=== PATIENT | female | born 1945 | race Caucasian/White ===

== ENCOUNTER 2023-03-15 14:25 | Outpatient (CLI) | payer MEDICARE ==
[~2023-03-15 14:25] MED LIST: ASPI-83 PO; FESO4TAB PO; FLEC100T2 PO; FURO-150 PO; LEVO137T24 PO; LISI20TA28 PO; MAGN400T39 PO; METO-395 PO; SIMV10TA98 PO
== END 2023-03-15 23:59 | disposition home or self-care (01) ==
LOC: CARD DIAG 14:25
PROVIDERS: ATTEND Internal Medicine Cardiovascular Disease
DX: I34.0 Nonrheumatic mitral (valve) insufficiency (principal); R06.02 Shortness of breath; I48.0 Paroxysmal atrial fibrillation
CPT/HCPCS: 93306

== ENCOUNTER → 2024-06-20 | Day surgery (SDC) | payer MEDICARE ==
[2024-06-19 13:15] LABS: BASOPHILS # (AUTO) 0.1 X10'3 (0-0.2); BASOPHILS % (AUTO) 0.5 % (0-1); EOSINOPHILS % (AUTO) 0.4 % (0-6); HEMATOCRIT 44.5 % (35.0-45.0); LYMPHOCYTES # (AUTO) 1.2 X10'3 (1.1-4.8); LYMPHOCYTES % (AUTO) 11.6 % (21-51); MEAN CORPUSCULAR HEMOGLOBIN 32.4 PG (27.0-31.0); MEAN CORPUSCULAR HGB CONC 33.7 g/dL (33.0-36.5); MEAN CORPUSCULAR VOLUME 95.9 FL (78-98); MONOCYTES # (AUTO) 0.6 X10'3 (0-0.9); MONOCYTES % (AUTO) 6.2 % (2-12); NEUTROPHILS # (AUTO) 8.2 X10'3 (1.8-7.7); NEUTROPHILS % (AUTO) 81.3 % (42-75); PLATELET COUNT 235 X10'3 (140-440); RED BLOOD COUNT 4.64 X10'6 (4.20-5.60); RED CELL DISTRIBUTION WIDTH 13.9 % (11.5-14.5)
[2024-06-19 13:28] LABS: ALBUMIN 3.6 G/DL (3.4-5.0); ANION GAP 7 (8-16); BLOOD UREA NITROGEN 23 MG/DL (7-18); BUN/CREATININE RATIO 24.5 (10.0-20.0); CHLORIDE 104 MMOL/L (99-107); CREATININE 0.94 MG/DL (0.40-0.90); GLUCOSE 112 MG/DL (70-104); INR 1.1 INR; POTASSIUM 3.9 MMOL/L (3.5-5.1); PROTHROMBIN TIME 11.3 SECONDS (9.0-12.0); SODIUM 141 MMOL/L (135-145); TOTAL CARBON DIOXIDE 29.9 MMOL/L (24-32); eGFR 57 ML/MIN
[~2024-06-20] VITALS: Ht 165.1 cm; Wt 70.7 kg
[~2024-06-20] MED LIST changes: +LORazepam 0.5 MG tablet PO ONE; +MIDAZolam 1mg/ml 10ml vial IV ONE; +amiodarone 150mg/dext, iso-os 100 ML IV ONE; +atropine 0.1mg/ml 10ml syringe IV ONE; +diphenhydrAMINE 25mg capsule PO ONE; +morphine 10mg/ml inj. IV ONE; +normal saline 1000ml 1,000 ML IV SCH
[2024-06-20 07:14] VITALS: BP 159/67; PULSE 64; RESP 14; TEMP 98; O2SAT 96
== END | disposition home or self-care (01) ==
LOC: SSTAY O 06:46
PROVIDERS: ATTEND Internal Medicine Cardiovascular Disease
DX: I48.0 Paroxysmal atrial fibrillation (principal); Z53.8 Procedure and treatment not carried out for other reasons; I11.9 Hypertensive heart disease without heart failure; E78.5 Hyperlipidemia, unspecified; E89.0 Postprocedural hypothyroidism; J44.9 Chronic obstructive pulmonary disease, unspecified; Z85.3 Personal history of malignant neoplasm of breast; Z79.01 Long term (current) use of anticoagulants; Z79.890 Hormone replacement therapy; Z79.899 Other long term (current) drug therapy; Z90.12 Acquired absence of left breast and nipple; Z90.710 Acquired absence of both cervix and uterus; Z98.890 Other specified postprocedural states
CPT/HCPCS: 36415; 80048; 85025; 85610; 93005; J7030

== ENCOUNTER 2025-11-08 05:56 | Day surgery (SDC) | payer MEDICARE ==
[2025-11-07 10:23] LABS: MEAN PLATELET VOLUME 8.1 FL (7.4-10.4); RED CELL DISTRIBUTION WIDTH 13.7 % (11.5-14.5)
[2025-11-07 10:38] LABS: INR 1.1 INR
[2025-11-07 10:43] LABS: CREATININE 0.80 MG/DL (0.40-0.90); TOTAL CARBON DIOXIDE 33.3 MMOL/L (24-32); eGFR 69 ML/MIN
[~2025-11-08] VITALS: Ht 167.6 cm; Wt 68.0 kg
[~2025-11-08 05:56] MED LIST changes: -LORazepam 0.5 MG tablet PO ONE; -MIDAZolam 1mg/ml 10ml vial IV ONE; -amiodarone 150mg/dext, iso-os 100 ML IV ONE; -atropine 0.1mg/ml 10ml syringe IV ONE; -diphenhydrAMINE 25mg capsule PO ONE; -morphine 10mg/ml inj. IV ONE; -normal saline 1000ml 1,000 ML IV SCH
--- NOTE | 2025-11-08 06:23 | ELECTROCARDIOGRAPH REPORT ---
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 Chhaya Arellano Measurements Intervals [place] Rate: 56 P: 43 OH: 222 QRS: -25 QRSD: 123 T: 49 QT: 484 QTc: 468 Interpretive Statements Sinus rhythm Prolonged [place] interval Left ventricular hypertrophy Electronically Signed On 11-08-2025 6:56:[address] Chhaya Arellano Please click the below link to view image of tracing.
[2025-11-08] MEDS ORDERED: atropine 0.1mg/ml 10ml syringe IV ONE (06:40)
[2025-11-08] MEDS ORDERED: normal saline 1000ml 1,000 ML IV SCH (06:40)
[2025-11-08] MEDS ORDERED: morphine 10mg/ml inj. IV ONE (06:40)
[2025-11-08] MEDS ORDERED: amiodarone 150mg/dext, iso-os 100 ML IV ONE (06:40)
[2025-11-08] MEDS ORDERED: MIDAZolam 1mg/ml 10ml vial IV ONE (06:40)
[2025-11-08] MEDS ORDERED: ATOR10TA70 PO (06:47)
[2025-11-08] MEDS ORDERED: APIX5TAB3 PO (06:47)
[2025-11-08] MEDS ORDERED: LEVO125T8 PO (06:47)
[2025-11-08] MEDS ORDERED: LISI40TA20 PO (06:47)
[2025-11-08] MEDS ORDERED: CHOL100024 PO (06:47)
[2025-11-08] MEDS ORDERED: PRED10DR7 EACHEYE (06:47)
[2025-11-08] MEDS ORDERED: Potassium PO (06:47)
[2025-11-08] MEDS ORDERED: DILT-88 PO (06:47)
[2025-11-08] MEDS ORDERED: FLUT1BLS10 INH (06:47)
[2025-11-08] MEDS ORDERED: Magnesium PO (06:47)
[2025-11-08] MEDS ORDERED: FLEC100T35 PO (06:47)
[2025-11-08] MEDS ORDERED: Calcium PO (06:47)
== END 2025-11-08 08:40 | disposition home or self-care (01) ==
LOC: SSTAY O 05:56
PROVIDERS: ATTEND Internal Medicine Cardiovascular Disease
DX: I48.0 Paroxysmal atrial fibrillation (principal); Z53.8 Procedure and treatment not carried out for other reasons; R94.31 Abnormal electrocardiogram [ECG] [EKG]; I11.9 Hypertensive heart disease without heart failure; E89.0 Postprocedural hypothyroidism; E78.5 Hyperlipidemia, unspecified; J44.9 Chronic obstructive pulmonary disease, unspecified; Z79.01 Long term (current) use of anticoagulants; Z79.899 Other long term (current) drug therapy; Z85.3 Personal history of malignant neoplasm of breast; Z90.12 Acquired absence of left breast and nipple; Z90.710 Acquired absence of both cervix and uterus; Z98.890 Other specified postprocedural states
CPT/HCPCS: 36415; 80048; 85025; 85610; 93005; J7030